=== PATIENT | male | born 1975 | race African-American/Black ===

== ENCOUNTER 2019-04-27 01:25 | Inpatient (IN) | payer OTHER ==
[2019-04-27] VITALS (7 sets, daily range): BP systolic 142–164; BP diastolic 81–97; BMI 42.9
[2019-04-27] MEDS ORDERED: SULFAMETHOXAZOL1 TA3 PO (01:29)
[2019-04-27] MEDS ORDERED: CLARITIN 10 MG10 MG PO (01:29)
--- NOTE | 2019-04-27 02:30 | NUR ---
PT RESTING ON BED, PT FAMILY AT BEDSIDE. NO S/S OF ACUTE DISTRESS NOTED.
--- NOTE | 2019-04-27 03:35 | NUR ---
PT UPDATED ON PLAN OF CARE. NO S/S OF ACUTE DISTRESS NOTED. PT FAMILY AT BEDSIDE.
[2019-04-27 03:54] LABS: BASOPHILS 0.5 % (0-2); EOSINOPHILS 2.5 % (0-7); HEMATOCRIT 40.6 % (42.0-54.0); HEMOGLOBIN 13.4 g/dL (13.5-17.5); LYMPHOCYTES 28.2 % (15-50); MCH 28.5 pg (26.0-34.0); MCV 86.2 fL (80.0-100.0); MEAN PLATELET VOLUME 12.8 fL (7.4-10.4); MONOCYTES 5.6 % (2-11); NEUTROPHILS 63.2 % (40-80); PLATELET COUNT 173 10x3/uL (130-400); RBC 4.71 10x6/uL (4.20-6.10); RDW 13.3 % (11.5-14.5); WBC 5.7 10x3/uL (4.8-10.8)
[2019-04-27 04:02] LABS: ALBUMIN 3.7 g/dL (3.4-5.0); ANION GAP 11.7 mmol/L (8-16); BILIRUBIN - TOTAL 0.44 mg/dL (0.2-1.3); CALCIUM 8.5 mg/dL (8.5-10.1); CARBON DIOXIDE 29.2 mmol/L (21.0-32.0); CREATININE - SERUM 1.4 mg/dL (0.6-1.3); POTASSIUM - SERUM 3.9 mmol/L (3.5-5.1); PROTEIN - SERUM 8.1 g/dL (6.4-8.2)
--- NOTE | 2019-04-27 18:09 | NUR ---
I have reviewed this patient and I concur with the Shift Assessment completed by the Licensed Practical Nurse today this shift.
--- NOTE | 2019-04-27 19:00 | NUR ---
REPORT RECEIVED AND CARE OF PT ASSUMED. PT LYING IN SUPINE POSITION WATCHING TV. IV IN LEFT AC PATENT WITH NS INFUSINGA T 125 ML / HR. DRESSING ON RIGHT ARM CLEAN, DRY AND INTACT. WILL MONITOR FOR NEEDS.
--- NOTE | 2019-04-27 21:16 | NUR ---
HS MEDICATIONS GIVEN TO INCLUDE MORPHINE 4 MG IVP PER REQUEST FOR PAIN. WILL CONTINUE TO MONITOR FOR NEEDS.
--- NOTE | 2019-04-28 00:10 | NUR ---
CHANGED DRESSING ON RIGHT FOREARM...REPLACED PACKING AND COVERED WITH 4X4'S AND WRAPPED WITH PLACIDO WRAP.
[2019-04-28 00:13] VITALS: BP 146/82
--- NOTE | 2019-04-28 01:15 | NUR ---
GAVE MORPHINE 4 MG IVP FOR C/O PAIN AT LEVEL 5/10. WILL MONITOR FOR EFFECTIVENESS.
[2019-04-28 04:00] VITALS: BP 121/80
--- NOTE | 2019-04-28 05:58 | NUR ---
IV IN LEFT AC LEAKING. REMOVED WITH CATHETER TIP INTACT. RE-SITED TO LEFT HAND USING 22 GUAGE CATHETER IN ONE STICK. IV FLUIDS RE-STARTED.
[2019-04-28 06:31] LABS: BASOPHILS 0.5 % (0-2); EOSINOPHILS 2.1 % (0-7); HEMATOCRIT 36.4 % (42.0-54.0); HEMOGLOBIN 11.8 g/dL (13.5-17.5); LYMPHOCYTES 24.9 % (15-50); MCH 27.9 pg (26.0-34.0); MCHC 32.4 g/dL (31.0-37.0); MCV 86.1 fL (80.0-100.0); MEAN PLATELET VOLUME 13.1 fL (7.4-10.4); MONOCYTES 8.5 % (2-11); PLATELET COUNT 165 10x3/uL (130-400); RBC 4.23 10x6/uL (4.20-6.10); RDW 13.4 % (11.5-14.5); WBC 4.3 10x3/uL (4.8-10.8)
[2019-04-28 06:51] LABS: ALBUMIN 2.8 g/dL (3.4-5.0); ANION GAP 12.5 mmol/L (8-16); BILIRUBIN - TOTAL 0.28 mg/dL (0.2-1.3); CALCIUM 7.7 mg/dL (8.5-10.1); CARBON DIOXIDE 26.2 mmol/L (21.0-32.0); CREATININE - SERUM 1.4 mg/dL (0.6-1.3); POTASSIUM - SERUM 3.7 mmol/L (3.5-5.1); PROTEIN - SERUM 6.7 g/dL (6.4-8.2)
[2019-04-28 09:15] VITALS: BP 123/63
[2019-04-28 14:01] VITALS: BP 131/83
--- NOTE | 2019-04-28 15:14 | NUR ---
PT RESTING IN BED. NO SIGNS OF DISTRESS. IV TO LEFT HAND PATENT NO REDNESS OR TENDERNESS. HAS PLACIDO WRAP TO RIGHT ARM DRESSING CHANGED THIS AM. COMPLAINS OF PAIN. MEDICATION GIVEN. DENIES ANY FUTHER NEED AT THIS TIME. CALL LIGHT IN REACH. BED LOW POSITION. FAMILY AT BEDSIDE.
[2019-04-28 18:29] VITALS: BP 132/67
--- NOTE | 2019-04-28 18:45 | NUR ---
I have reviewed this patient and I concur with the Shift Assessment completed by the Licensed Practical Nurse today this shift.
[2019-04-28 20:00] VITALS: BP 137/75
[2019-04-29] VITALS: BP 133/77
--- NOTE | 2019-04-29 00:30 | NUR ---
CHANGED DRESSING RT ARM. PT TOLERATED WELL. WILL COTNINUE PLAN OF CARE. CALL LIGHT IN REACH.
[2019-04-29 04:00] VITALS: BP 132/80
--- NOTE | 2019-04-29 04:03 | NUR ---
PT RESTING IN BED. EYES CLOSED. NO SIGNS OF DISTRESS. BREATHING EVEN AND UNLABORED. CALL LIGHT IN REACH. BED LOWERED AND LOCKED. WILL CONTINUE PLAN OF CARE.
--- NOTE | 2019-04-29 04:07 | NUR ---
I have reviewed this patient and I concur with the Shift Assessment completed by the Licensed Practical Nurse today this shift.
[2019-04-29 05:35] LABS: ALBUMIN 2.8 g/dL (3.4-5.0); ANION GAP 11.3 mmol/L (8-16); BILIRUBIN - TOTAL 0.3 mg/dL (0.2-1.3); CALCIUM 8.3 mg/dL (8.5-10.1); CARBON DIOXIDE 26.4 mmol/L (21.0-32.0); CREATININE - SERUM 1.3 mg/dL (0.6-1.3); POTASSIUM - SERUM 3.7 mmol/L (3.5-5.1); PROTEIN - SERUM 6.9 g/dL (6.4-8.2)
[2019-04-29 05:44] LABS: BASOPHILS 0.8 % (0-2); EOSINOPHILS 2.8 % (0-7); HEMATOCRIT 35.2 % (42.0-54.0); HEMOGLOBIN 11.6 g/dL (13.5-17.5); LYMPHOCYTES 28.7 % (15-50); MCH 28.2 pg (26.0-34.0); MCV 85.6 fL (80.0-100.0); MEAN PLATELET VOLUME 13.2 fL (7.4-10.4); MONOCYTES 11.1 % (2-11); NEUTROPHILS 56.6 % (40-80); PLATELET COUNT 184 10x3/uL (130-400); RBC 4.11 10x6/uL (4.20-6.10); RDW 13.2 % (11.5-14.5)
[2019-04-29 08:45] VITALS: BP 131/87
[2019-04-29 14:30] VITALS: BP 156/82
--- NOTE | 2019-04-29 14:46 | MORECARE ---
CASE MANAGEMENT DISCHARGE SUMMARY PATIENT: FITO SCHMIDT UNIT: [id number] ADM DATE: 04/27/19 AGE: 44 : 71 SEX: M ROOM/BED: D.2228 AUTHOR: YUDELKADOC PHYSICIAN: REFERRING PHYSICIAN: HUNG THIBODEAUX MD DATE OF SERVICE: 04/29/19 Discharge Plan Patient Name: FITO SCHMIDT Facility: [facility]:[place] : 1975 Planned Disposition: Home Anticipated Discharge Date: 04/29/19 Discharge Date: Expected LOS: 2 Initial Reviewer: [email or web address] Initial Review Date: 04/29/2019 Generated: 04/29/19 3:46 pm Comments DCP- Discharge Planning Updated by [email or web address]: Kayleigh Torres on 04/29/19 1:[address] Patient Name: FITO SCHMIDT Admission Status: ER Accout number: [id number] Admission Date: 04-27-2019 : 1975 Admission Diagnosis: Attending: HUNG THIBODEAUX Current LOS: 2 Anticipated DC Date: 04-29-2019 Planned Disposition: Home Primary Insurance: [employer] CM met with patient to complete initial dc planning assessment. CM educated patient on the CM role and verbal consent given by patient to complete assessment. Patient lives at home with his and daughter. At discharge patient plans to return and feels this is a safe discharge. He states his daughter is a PHYSICIAN CODER and will do his dressing changes on his arm. States his is in the hospital, so his daughter will take him home. CM discussed availability of home health, rehab services, and medical equipment. Patient denied known discharge needs at this time. CM will continue to follow and will assist as needed with dc plans/needs. Discharge Planning Comments: Optical Coating Technician: Kayleigh Torres DCPIA - Discharge Planning Initial Assessment Updated by [email or web address]: Kayleigh Torres on 04/29/19 2:42 pm * Is the patient Alert and Oriented? Yes * How many steps to enter\exit or inside your home? 0/0 * PCP No PCP * [facility] * Preadmission Environment Home with Family * ADLs Independent * Equipment None * List name and contact numbers for known caregivers / representatives who currently or will assist patient after discharge: Ginny Schmidt - spouse - [phone] Selina Aponte DTR * Verbal permission to speak to the caregivers and representatives has been obtained from the patient. Yes * Community resources currently utilized None * Additional services required to return to the preadmission environment? No * Can the patient safely return to the preadmission environment? Yes * Has this patient been hospitalized within the prior 30 days at any hospital? No Patient Name: FITO SCHMIDT Page 19221 at 1446 All edits/amendments must be made on the electronic document DICTATION DATE: 04/29/19 1446 LABORER SHELLFISH PROCESSING: LIA 04/29/19 1446 RPT#: [id number] DC DATE: STATUS: ADM IN [facility] [address] [place] [address] END OF REPORT
[2019-04-29] MEDS ORDERED: MONODOX100 MG PO (15:01)
[2019-04-29] MEDS ORDERED: HYDROCODON-ACE1 EAC7 PO (15:38)
--- NOTE | 2019-04-29 16:30 | NUR ---
IV DC WITH CATH INTACT, DC INSTUCTIONS GIVEN PT VERABLIZES UNDERSTANDING PRINTED PAIN SCRIPT GIVEN PT LEAVING AMBULATIING TO FAMILY MEMBER ROOM IN STABLE CONDITON
[2019-04-29 16:47] VITALS: BP 116/86
--- NOTE | 2019-05-06 09:33 | MORECARE ---
CASE MANAGEMENT DISCHARGE SUMMARY PATIENT: FITO SCHMIDT UNIT: [id number] ADM DATE: 04/27/19 AGE: 44 : 71 SEX: M ROOM/BED: D.2228 AUTHOR: YUDELKADOC PHYSICIAN: REFERRING PHYSICIAN: HUNG THIBODEAUX MD DATE OF SERVICE: 05/06/19 Discharge Plan Patient Name: FITO SCHMIDT Facility: [facility]:[place] : 1975 Planned Disposition: Home Anticipated Discharge Date: 04/29/19 Discharge Date: 04/29/2019 Expected LOS: 2 Initial Reviewer: [email or web address] Initial Review Date: 04/29/2019 Generated: 05/06/19 10:33 am Comments DCP- Discharge Planning Updated by [email or web address]: Kayleigh Torres on 04/29/19 1:[address] Patient Name: FITO SCHMIDT Admission Status: ER Accout number: [id number] Admission Date: 04-27-2019 : 1975 Admission Diagnosis: Attending: HUNG THIBODEAUX Current LOS: 2 Anticipated DC Date: 04-29-2019 Planned Disposition: Home Primary Insurance: [employer] CM met with patient to complete initial dc planning assessment. CM educated patient on the CM role and verbal consent given by patient to complete assessment. Patient lives at home with his and daughter. At discharge patient plans to return and feels this is a safe discharge. He states his daughter is a MEMBERSHIP SECRETARY and will do his dressing changes on his arm. States his is in the hospital, so his daughter will take him home. CM discussed availability of home health, rehab services, and medical equipment. Patient denied known discharge needs at this time. CM will continue to follow and will assist as needed with dc plans/needs. Discharge Planning Comments: Wide Area Network Administrator: Kayleigh Torres DCPIA - Discharge Planning Initial Assessment Updated by [email or web address]: Kayleigh Torres on 04/29/19 2:42 pm * Is the patient Alert and Oriented? Yes * How many steps to enter\exit or inside your home? 0/0 * PCP No PCP * [facility] [address] * Preadmission Environment Home with Family * ADLs Independent * Equipment None * List name and contact numbers for known caregivers / representatives who currently or will assist patient after discharge: Ginny Schmidt - spouse - [phone] Selina Aponte DTR * Verbal permission to speak to the caregivers and representatives has been obtained from the patient. Yes * Community resources currently utilized None * Additional services required to return to the preadmission environment? No * Can the patient safely return to the preadmission environment? Yes * Has this patient been hospitalized within the prior 30 days at any hospital? No Last DP export: 04/29/19 1:46 pm Patient Name: FITO SCHMIDT Page [phone] at 0933 All edits/amendments must be made on the electronic document DICTATION DATE: 05/06/19932 AEROSPACE ENGINEER OFFICER ARMAMENT: LIA 05/06/19932 RPT#: [id number] DC DATE:04/29/19 STATUS: DIS IN [facility] [address] [place] [address] END OF REPORT
== END 2019-04-29 17:39 | disposition home or self-care (01) | DRG 603 ==
LOC: D.ER 01:25 → D.MS 03:54
PROVIDERS: Family Medicine; ADMIT Family Medicine; ATTEND Family Medicine
PROC: 0H9BXZZ Drainage of Right Upper Arm Skin, External Approach (ICD-10-PCS; principal; 2019-04-27)
DX: L03.113 Cellulitis of right upper limb (principal); N17.9 Acute kidney failure, unspecified; Z68.41 Body mass index [BMI] 40.0-44.9, adult; E66.9 Obesity, unspecified; L02.413 Cutaneous abscess of right upper limb; B95.62 Methicillin resistant Staphylococcus aureus infection as the cause of diseases classified elsewhere